=== PATIENT | female | born 1975 | race Caucasian/White ===

== ENCOUNTER 2020-10-30 08:00 | Outpatient (REF) | payer OTHER, SELFPAY ==
[2020-11-01 21:12] LABS: HPV mRNA E6/E7 rflx Not Detected (Not Detected)
== END 2020-10-30 08:01 | disposition home or self-care (01) ==
LOC: HO.LAB 08:00
PROVIDERS: PCP Nurse Practitioner Family; Visit Provider Advanced Practice Midwife
DX: Z01.419 Encounter for gynecological examination (general) (routine) without abnormal findings (principal); E03.9 Hypothyroidism, unspecified; N94.6 Dysmenorrhea, unspecified; E66.9 Obesity, unspecified; Z68.39 Body mass index [BMI] 39.0-39.9, adult; Z97.5 Presence of (intrauterine) contraceptive device
CPT/HCPCS: 87624; 88142